=== PATIENT | female | born 1960 | race Caucasian/White ===

== ENCOUNTER 2018-05-19 10:57 | Emergency (ER) | payer MEDICAID ==
[2018-05-19] MEDS: IPRATROPIUM (NEB) 0.5 MG/2.5 ML AMP HHN (12:06)
[2018-05-19] MEDS: ALBUTEROL 0.083% (NEB) 2.5 MG/3 ML AMP HHN (12:06)
[2018-05-19] MEDS: DEXAMETHASONE 10 MG/ML 1 ML INJ IM (12:07)
== END 2018-05-19 13:17 | disposition home or self-care (01) ==
LOC: FTE 10:57
DX: R05 Cough (principal); J45.901 Unspecified asthma with (acute) exacerbation
CPT/HCPCS: 71045; 94664; 96372; 99284-25